=== PATIENT | female | born 1950 | race Caucasian/White ===

== ENCOUNTER → 2021-08-13 | Outpatient (CLI) | payer MEDICARE, OTHER ==
--- NOTE | 2021-08-13 18:58 | REP ---
INDICATION: LOW BACK PAIN. COMPARISON: None. TECHNIQUE: Five view lumbar spine series was performed. FINDINGS: There is minimal levoscoliosis centered at the L1 level. There is degenerative disc disease, L2-3 through L5-S1 with narrowing of the intervertebral disc spaces and marginal osteophytes. There are no compression fractures. There is no spondylolisthesis. The SI joints are normal. The perivertebral soft tissues are unremarkable. IMPRESSION: Multilevel degenerative disc disease of the lumbar spine with minimal levoscoliosis. <Electronically signed by Rivera Rodriguez > 08/13/21 [id number]
== END ==
LOC: M RAD 18:24
PROVIDERS: ATTEND Physician Assistant Medical
DX: M54.50 Low back pain, unspecified (principal)